=== PATIENT | male | born 1995 | race Caucasian/White ===

== ENCOUNTER 2016-09-18 14:50 | Emergency (ER) | payer OTHER, BC ==
[~2016-09-18] VITALS: Ht 175.3 cm; Wt 62.6 kg
[~2016-09-18 14:50] MED LIST: INSU100V12 SQ; INSU100V13 SQ
[2016-09-18 14:53] VITALS: BP 120/67; PULSE 110; TEMP 99; O2SAT 97; Ht 175.3 cm; Wt 62.6 kg
--- OUTSIDE RECORDS SUMMARY | 2016-09-18 14:53 | XMS REPORT | Continuity of Care Document ---
Author Author [facility] Organization [facility] Address Unknown Phone Unavailable Support Name Relationship Address Phone KATRIN BASSETT DO Caregiver [address] [place] [address] [place] [address] Unavailable EYAL RICKS MD Caregiver [address] [place] [address] [place] [address] Unavailable FARTUN RIDDLE Next Of Kin [address] [place] [address] Insurance Providers Guarantor Roberto Riddle Address [address] [place] [id number] Email DENIED/NO TO PT [facility] Policy Number [id number] Subscriber's Name Roberto Riddle Relationship 33 Father / Parent Group Number [id number] Chief Complaint and Reason for Visit Chief Complaint Skin Injury Reason for Visit Bleeding from wound Problems Past Problems Medical Problem Onset Date Bleeding from wound Unknown Medications Current Home Medications Medication Dose Units Route Directions Days Qty Instructions Start Date Insulin Aspart (Novolog) 100 Unit/Ml Inj Unit Sub-Q Daily PT IS ON A SLIDING SCALE 01/29/16 Insulin Detemir (Levemir) 100 Unit/Ml Inj 35 Unit Sub-Q Daily Social History Query Response Start Date Stop Date Smoking Status Never smoker Hospital Discharge Instructions No hospital discharge instructions. Plan of Care Discharge Date 01/29/16 5:45pm Disposition 01 DISCHARGED HOME, SELF-CARE Condition at Discharge Improved Instructions/Education Provided Skin Wound Prescriptions See Medication Section Referrals KATRIN BASSETT DO Address: [address] [place] [address] [place] [phone] Additional Instructions/Education Leave dressing in place for 24 hours. Do not wash until Sunday. Avoid scratch area. Monitor for signs/symptoms of infection (increasing pain, spreading of redness of skin, drainage of pus, fever, chills). Follow as needed with your PCP. Care Plan and Goals Physician Care Plan Problem: Bleeding from wound Goal: Follow up with primary care provider Instructions: Take medications and follow care plan as discussed/written Functional Status No functional status results. Allergies, Adverse Reactions, Alerts Allergen Type Severity Reaction Status Last Updated Penicillin Allergy Unknown RASH Active 01/29/16 Immunizations No immunization records. Vital Signs Acute Vital Signs Vital Response Date/Time Temperature (Fahrenheit) 98.3 deg F (96.8 - 99.1) 01/29/2016 5:45pm Temperature (Calculated Celsius) 36.81252 degrees C (36.0 - 37.3) 01/29/2016 5:45pm Pulse Rate (adult) 90 bpm (60 - 100) 01/29/2016 5:45pm Respiratory Rate 16 breaths/min (10 - 20) 01/29/2016 5:45pm O2 Sat by Pulse Oximetry 97 % (90 - 100) 01/29/2016 5:45pm Blood Pressure 133/78 mm Hg 01/29/2016 5:45pm Height (Feet) 5 feet 01/29/2016 4:18pm Height (Inches) 9.00 inches 01/29/2016 4:18pm Weight (Kilograms) 77.200 kg 01/29/2016 4:18pm Body Mass Index (BMI) 25.0 01/29/2016 4:18pm Results No known relevant diagnostic tests, laboratory data and/or discharge summary. Procedures No known history of procedures. Encounters Encounter Location Arrival/Admit Date Discharge/Depart Date Attending Provider Departed Emergency Room [facility] 01/29/16 4:15pm 01/29/16 5: 45pm EYAL RICKS MD Recent Diagnosis
--- OUTSIDE RECORDS SUMMARY | 2016-09-18 14:54 | XMS REPORT | Referral Summary ---
Author Author [facility] Organization [facility] Address Unknown Phone Unavailable Care Team Providers Care Precision Lens Polisher Name Role Phone Ramakrishna Rangel Primary Care Physician [phone] Encounter VC Date(s): 02/17/16 - 02/17/16 [facility], [address] [place] [address]- Discharge Diagnosis: Folliculitis Discharge Disposition: 01-Home or Self Care Attending Physician: Yang Mathew PA-C Admitting Physician: Yang Mathew PA-C Vital Signs No data available for this section Problem List Condition Effective Dates Status Health Status Informant Diabetes(Confirmed)1 Active Diabetes type 1, Resolved uncontrolled(Confirm ed) 1type 1 Allergies, Adverse Reactions, Alerts Substance Reaction Severity Status penicillin1 Active 1rash, hives Medications Bactrim DS 800 mg-160 mg oral tablet 1 tabs, Oral, BID, X 7 days, # 14 tabs, 0 Refill(s), Pharmacy: [id number] Start Date: 02/17/16 Stop Date: 02/24/16 Status: Ordered Glucometer (DME) DME Item Accucheck Avia Plus glucose monitor. Use to test blood glucose as directed by physician for diabetes 250.01, See Instructions, # 1 Each, 0 Refill( s), Pharmacy: [facility] [id number], Accucheck Avia Plus glucose monitor. Use to test blood... Start Date: 03/04/14 Status: Ordered HumaLOG 100 units/mL subcutaneous solution 15 units, SubCutaneous, TIDAC, # 10 mL, 5 Refill(s), Pharmacy: [facility] [id number], 15 units SubCutaneous TIDAC Start Date: 12/30/13 Status: Ordered Lantus 100 units/mL subcutaneous solution 45 units, SubCutaneous, Bedtime (once a day), # 10 mL, 5 Refill(s), Pharmacy: [id number], 45 units SubCutaneous Bedtime (once a day) Start Date: 12/30/13 Status: Ordered mupirocin 2% topical ointment 1 cecy, Topical, TID, X 7 days, # 30 g, 0 Refill(s), Pharmacy: [facility] [id number] Start Date: 02/17/16 Stop Date: 02/24/16 Status: Ordered Soundl.ly SYR/NDL 31G 0.5ML 8MM See Instructions, USE FOUR TIMES DAILY, # 100 unknown unit, MENDEZ, eRx: [id number], USE FOUR TIMES DAILY Start Date: 06/08/14 Status: Ordered Results No data available for this section Immunizations No data available for this section Procedures No data available for this section Social History Social History Type Response Smoking Status Never smoker Assessment and Plan Extracted from: Title: rash Author: Yang Mathew PA-C Date: 02/17/16 Assessment/Plan Folliculitis Procedure:The vesicles were ruptured andcultured.They were covered with a Xeroform4 x 4andsecured. I recommended ceasing shavingthe abdomen. Patient was given sample ofHibiclens to wash the skin gentlyaround the abdomen;once a dayfor5 days;handout-Hibiclens use was provided. Also mupirocin to apply3 times a day for 5 days; cover with bandage. Bactrim DS 7 days. Tylenol/Ibuprofen as needed for fever or pain. Recommend careful diabetesmanagement,blood sugar monitoringand adequate diet. Practice good hand hygiene. FU with PCP if not improving, worsening symptoms, or as needed. Questions were answered. Patient verbalized understanding. Patient left in stable condition. Addendum I reviewed this chart, the patient's medical history, and the by Ronna, Resident's/COMPUTER ENGINEER's/PA/RN's/PharmD's documented findings, and concur with the assessment and Nilay Francis plan as above. on February 17, 2016 16:36:02 CDT
--- NOTE | 2016-09-18 15:30 | ERPDOC ---
Departure Disposition Decision Date: September 18, 2016 Disposition Decision Time: 15:51 Disposition: 01 DISCHARGED HOME, SELF-CARE Impression Impression Impression: Primary Impression: Bee sting Encounter type: initial encounter Injury intent: accidental or unintentional Qualified Codes: T63.441A - Toxic effect of venom of bees, accidental (unintentional), initial encounter Severity: Mild Condition: Improved Seen By: Mid-level only Referrals: KATRIN BASSETT DO (Family) Patient Instructions: Insect Bite or Sting (ED) Problems/Meds/Labs Reviewed?: Yes Medications reviewed and manag: Yes Additional Instructions: The stinger was removed from you ear in the ED. You will have some localized redness to your ear after bee sting. Monitor for signs/symptoms of infection (fever, chills, pus draining site of sting, increasing pain and redness). You may take Benadryl 50mg every 4-6 hours if you have itching around site. You may take 800mg of ibuprofen with food every 8 hours as needed for pain. Follow with your PCP as needed. Follow up care ordered?: Yes Mental Status: Alert, Oriented HPI - Skin General General Chief Complaint: Skin Injury Stated Complaint: BEE STING TO LEFT EAR Time Seen by Provider: 15:30 Source: patient HPI - Skin General Initial Comments 21-year-old male presents to ER for evaluation after a bee sting to left ear while at work today at 1430. Patient denies any shortness of breath. swelling of the face, mucous membranes or difficulty swallowing.. No known history of bee stings or ALLERGIES to bee stings. Pain Scale: Now: 4/10 Associated Symptoms: DENIES: blisters, headache, petechiae, rash Allergies: Coded Allergies: Penicillins (Verified Allergy, Unknown, RASH, 09/18/16) Past History Past Medical History Metabolic: diabetes (type I) Cardiac: DENIES: angina Respiratory: DENIES: asthma GI: DENIES: ulcers Male: DENIES: renal insufficiency Neurological: DENIES: seizures Musculoskeletal: DENIES: osteoarthritis Psychological: DENIES: depression Surgical History Denies Surgeries Family History Family PMH: FOUND: other (noncontributory) Social History Household Members: family Current Occupational Status: employed Review of Systems Constitutional Constitutional: DENIES: chills, dizziness, fever, weakness Eyes General: DENIES: erythema, exudate Lids/Accessories: DENIES: erythema, swelling ENMT Ears: other (pain in auricle of right ear), see HPI, DENIES: pain Hearing: DENIES: hearing loss Sinuses: DENIES: congestion, rhinorrhea Mouth/Throat: DENIES: sore throat Cardiovascular Cardiac: DENIES: chest pain, murmur Rhythm/Rate: DENIES: palpitations Pulmonary Respiratory: DENIES: cough, dyspnea GI Upper Abdomen: DENIES: nausea, pain, vomiting Lower Abdomen: DENIES: blood in stool, diarrhea, pain General: DENIES: dysuria, pain Musculoskeletal General: DENIES: joint pain, pain, tenderness Integumentary Skin: DENIES: color change, itching, rash Neurological General: DENIES: ataxia, change in strength, numbness, paralysis/paresis, weakness Psychiatric Psychiatric: DENIES: anxiety, depression, nervousness Physical Exam General General Nourishment: well nourished, well developed, no acute distress, adult General Body Habitus: well groomed Vitals and Pain First Documented Vital Signs Date Time Temp Pulse Resp B/P Pulse Ox O2 Delivery O2 Flow Rate FiO2 09/18/16 14:53 99.0 110 16 120/67 97 Room Air Weight: Kilograms: 62.600 Height (feet): 5 Height (inches): 9.00 Triage Pain Scale: Eyes (brief) Eyes Brief: found: EOMI ENMT Ear/Canal/Mastiod: FOUND: normal pinna (been stinger embeded in choncha of auricle of left ear (auricle of left ear is mildly swollen with erythema)) Mouth/Dental/Tongue: FOUND: mucosa moist, NOT FOUND: gingival edema, mucosa erythema Pharynx: NOT FOUND: edema Head: symmetric Neck (brief) Neck: FOUND: trachea midline Respiratory (brief) Respiratory: FOUND: clear all hoang, equal bilaterally, symmetrical, NOT FOUND : wheezes Cardiovascular (brief) Cardiac: FOUND: regular rate, regular rhythm Musculoskeletal (brief) Musculoskeletal Brief: NOT FOUND: deformity, loss of motion Integumentary (brief) Integumentary Brief: FOUND: dry, pink, warm Neurologic (brief) Neurological Brief: FOUND: gait w/o gross def to obs, motor-no gross deficits, sensory-no gross deficits Psychiatric (brief) Psychiatric Brief: FOUND: alert, normal affect, oriented Differential Diagnoses Considering: Bite, Insect Sting, Other (Allergic reaction) Procedures Procedures Performed Procedures Performed: FBR - ear/nose Foreign Body Removal Procedure Foreign Body Removal : Location: ear Foreign Body: insect (stinger from bee) Removal Technique: forceps Progress Results/Orders Orders Procedure Category Date Status Time Diphenhydramine PHA 09/18/16 Complete (Benadryl) 15:45 Ibuprofen (Motrin) PHA 09/18/16 Complete 15:45 Medications Current ED Medications Diphenhydramine HCl (Benadryl) 50 mg O ONCE PO Last administered on 09/18/16 15:42; Start 09/18/16 at 15:45; Stop 09/18/16 at 15:46; Status DC Ibuprofen (Motrin) 800 mg O ONCE PO Last administered on 09/18/16 15:42; Start 09/18/16 at 15:45; Stop 09/18/16 at 15:46; Status DC Progress Progress Patient's employer accompanies patient in exam room. Employer interrupts patient and answers questions for patient. I discussed treatment plan and return precautions with patient who verbalized understanding. Employer had patient leave ED stating patient "he cannot miss his ride". I was unable to give additional instructions for follow up or review dismissal paper work with patient. KALLI ROSS DATABASE MARKETING ANALYST September 18, 2016 15:30
[2016-09-18] MEDS ORDERED: IBUPROFEN 200 MG TABLET PO ONE (15:45)
[2016-09-18 15:55] VITALS: RESP 16
== END 2016-09-18 15:56 | disposition home or self-care (01) ==
LOC: ED 14:50
DX: T63.441A Toxic effect of venom of bees, accidental (unintentional), initial encounter (principal); Y92.89 Other specified places as the place of occurrence of the external cause